=== PATIENT | female | born 1955 | race Caucasian/White ===

== ENCOUNTER 2021-12-05 13:37 | Inpatient (IN) | payer MEDICARE, BC ==
[~2021-12-05] VITALS: Ht 160 cm; Wt 58.1 kg
[2021-12-05] VITALS (24 sets, daily range): BP systolic 33–130; BP diastolic 23–88
--- NOTE | 2021-12-05 13:40 | NUR ---
[id number] FRM HOME "LOW BLD PRESSURE AT 60'S/40'S, TACHY AT 120's [address] FRM [facility] YESTERDAY; FULL CODE. WAS AT [facility] FOR BOWEL OBSTRUCTION AND WAS MEDICALLY CLEARED. ATTACHED TO MONITOR. DENIES ANY PAIN. DR ARIAS AT BEDSIDE. AWAITING MD ORDERS.
--- NOTE | 2021-12-05 13:44 | NUR ---
IV ESTABLIHSED L AC 20G. LABS DRAWN AND COLLECTED AT BEDSIDE
--- NOTE | 2021-12-05 13:44 | NUR ---
CALLED DR. JANA AMIN [phone] DROP HAMMER PILE DRIVER OPERATOR SERVICE WILL BE PAGED PER DOMINIQUE.
--- NOTE | 2021-12-05 13:50 | NUR ---
[facility] ADMINISTRATOR IS DR. JOSE FRANCISCO JESSICA WILL BE PAGED.
[2021-12-05] MEDS ORDERED: IV NS 0.9% 1,000 ML BAG IV ONE (14:00)
[2021-12-05 14:11] LABS: HEMATOCRIT 39 % (33-45); HEMOGLOBIN 12.4 g/dL (11.5-14.8); LYMPHOCYTES # (AUTO) 0.7 K/uL (0.8-4.8); LYMPHOCYTES % (AUTO) 38.2 % (20.0-44.0); MEAN CORPUSCULAR HGB CONC 32 g/dl (31.0-36.0); MEAN CORPUSCULAR VOLUME 96 fL (82-100); MONOCYTES # (AUTO) 0.1 K/uL (0.1-1.30); MONOCYTES % (AUTO) 3.2 % (2.0-12.0); NEUTROPHILS # (AUTO) 1.1 K/uL (1.8-8.9); NEUTROPHILS % (AUTO) 58.6 % (43.0-81.0); PLATELET COUNT (AUTO) 238 K/uL (150-450); RED BLOOD CELL COUNT(AUTO) 4.09 MIL/uL (4.0-5.2)
[2021-12-05 14:34] LABS: WHITE BLOOD COUNT (AUTO) 1.9 K/uL (4.3-11.0)
--- NOTE | 2021-12-05 14:36 | NUR ---
COVID TEST COLLECTED AND SENT
[2021-12-05] MEDS ORDERED: [UNRECOGNIZED DRUG - REMARK] (14:40)
[2021-12-05] MEDS ORDERED: MELA5TAB PO (14:40)
[2021-12-05] MEDS ORDERED: FOLI0.4T6 PO (14:40)
[2021-12-05] MEDS ORDERED: HYDROCHLOROTHIAZIDE (14:40)
[2021-12-05] MEDS ORDERED: ASCO500C17 PO (14:40)
[2021-12-05] MEDS ORDERED: HYDROMORPHONE 1 MG/1 ML DISP.SYRIN ONE (15:04)
[2021-12-05 15:07] LABS: CALCIUM, SERUM 10.3 mg/dL (8.5-10.1); CARBON DIOXIDE 17 mmol/L (21-32); CHLORIDE 104 mmol/L (98-107); CREATININE 3.5 mg/dL (0.6-1.3); GLUCOSE 133 mg/dL (74-106); POTASSIUM 4.8 mmol/L (3.5-5.1); SODIUM SERUM 142 mmol/L (136-145)
[2021-12-05 15:22] LABS: ALANINE AMINOTRANSFERASE 111 U/L (12-78); ALBUMIN 2.2 g/dL (3.4-5.0); ALKALINE PHOSPHATASE 119 U/L (46-116); ASPARTATE AMINOTRANSFERASE 71 U/L (15-37); BILIRUBIN,DIRECT 0.3 mg/dL (0.0-0.2); BILIRUBIN,TOTAL 0.9 mg/dL (0.2-1.0)
[2021-12-05 15:24] LABS: UREA NITROGEN, BLOOD 84 mg/dL (7-18)
[2021-12-05] MEDS ORDERED: HYDROMORPHONE 1 MG/1 ML DISP.SYRIN IV ONE (15:30)
--- NOTE | 2021-12-05 15:39 | NUR ---
CALLED DR. JESSICA [phone] MOSCOSO.
--- NOTE | 2021-12-05 15:45 | NUR ---
DR MOSCOSO ON THE PHONE WITH DR JESSICA
--- NOTE | 2021-12-05 15:55 | NUR ---
MOVE SHEET SUBMITTED.
[2021-12-05] MEDS ORDERED: VANCOMYCIN 1 GM in IV D5W 250 ML IV ONE (16:00)
[2021-12-05] MEDS ORDERED: NOREPINEPHRINE 8 MG in IV NS 0.9% 250 ML IV ONE (16:00)
[2021-12-05] MEDS ORDERED: CEFEPIME 1 GM in IV D5W 50 ML IV ONE (16:00)
--- NOTE | 2021-12-05 16:03 | NUR ---
[facility] CALLED METROPOLITAN EDITOR PAGED.
[2021-12-05] MEDS ORDERED: ONDANSETRON HCL/PF 4 MG/2 ML VIAL ONE (16:54)
[2021-12-05] MEDS ORDERED: IV NS 0.9% 1,000 ML IV PRN (17:00)
[2021-12-05] MEDS ORDERED: ACETAMINOPHEN 325 MG TABLET PO PRN (17:00)
[2021-12-05] MEDS ORDERED: MAG HYDROX/AL HYDROX/SIMETH 30 ML UDC PO PRN (17:00)
[2021-12-05] MEDS ORDERED: NOREPINEPHRINE 8 MG in IV NS 0.9% 242 ML IV PRN (17:00)
[2021-12-05] MEDS ORDERED: MAGNESIUM HYDROXIDE 30 ML UDC PO PRN (17:00)
[2021-12-05] MEDS ORDERED: ONDANSETRON HCL/PF - ER 4 MG/2 ML VIAL IV ONE (17:00)
[2021-12-05] MEDS ORDERED: Z GUARD REMEDY 4 OZ OINT TP PRN (17:00)
--- NOTE | 2021-12-05 17:38 | NUR ---
GOT BED ICU 260
[2021-12-05 17:47] LABS: BAND % (MANUAL) 6 % (0.0-5.0); LYMPHOCYTES % (MANUAL) 37 % (16-48); METAMYELOCYTES % 5 % (0-0); MONOCYTES % (MANUAL) 10 % (0-11.0); MYELOCYTES % 1 % (0-0); NEUTROPHILS % (MANUAL) 41 (42-76)
--- NOTE | 2021-12-05 17:48 | NUR ---
REPORT GIVEN TO ROSEMARIE FOR GLADIS
--- NOTE | 2021-12-05 18:35 | NUR ---
PATIENT ENTRY LINDEN HOUSTON RECEIVED REPORT FROM ER. PT ARRIVED TO ICU VIA ED GURNEY ACCOMPANIED BY RN AND TECH. PT IS CURRENTLY A&OX4, BREATHING EVEN AND UNLABORED ON RA. WHILE LYING SUPINE PT ENDORSES NO PAIN BUT WILL GIVE A 8/10 REPORT UPON MOVEMENT ASSOCIATED W/ ABDOMEN. CURRENT VS ARE 128 HR, 94% SPO2, RR 20, 121/81, 97.6 F. RN CHANGED LINENS, PLACED PT IN CLEAN GOWN, PUT PT ON BEDSIDE MONITOR. LEVOPHED IS RUNNING AT 0.2 MGC/KG/MIN. ADMISSION WILL BE ENDORSED TO MILK PASTEURIZER.
--- NOTE | 2021-12-05 18:40 | NUR ---
ICU/RN PT ADMITED FROM ER .AWAKE,ALERT.ON ROOM AIR.SAT O2-93%.HR-130 BPM SINUS RHYTHM.ON LEVOPHED DRIP.COLOSTOMY BAG.SKIN INTACT.AFEBRILE.NO PAIN REPORTED AT THIS TIME.
--- NOTE | 2021-12-05 18:43 | NUR ---
PT TRANSPORTED TO ICU WITH ACLS PROTOCOLS IN PLACE, PT RECIEVED BY RNS MAXIMILIAN AND ROSEMARIE.
[2021-12-05] MEDS: NOREPINEPHRINE 8 MG in IV NS 0.9% 242 ML IV PRN ×2 (19:00→19:46)
--- NOTE | 2021-12-05 19:10 | NUR ---
ICU/FRONT END UI DEVELOPER RECIEVED REPORT FROM DAY NURSE TYRESE, WHO HAD GOTTEN THE PT FROM ER @7105
[2021-12-05] MEDS ORDERED: FENTANYL PF 100MCG/2ML AMPUL IV ONE (20:30)
[2021-12-05] MEDS: PIPERACILLIN /TAZOBACTAM 2.25 G in IV D5W 50 ML IV SCH (20:55)
--- NOTE | 2021-12-05 21:00 | NUR ---
ICU/DIRECTOR DIVERSITY PT COMPLAINED ABOUT ABDOMINAL PAIN RATED 10/10, CALLED THE RESEARCH PHYSICIAN CRAMER. WAS GIVEN ORDER FOR FENTANYL 25MG. ORDER PLACED IN COMPUTER CHARGE NURSE CARRIED OUT ORDER. WILL MONITOR THIS PAIN.
--- NOTE | 2021-12-05 21:30 | NUR ---
ICU/PUBLIC HEALTH SANITARIAN TECHNICIAN LEVO WAS BEING TITRATED UP BY HOSE BUILDER NURSE DUE TO LOW BLOOD PRESSURE. WILL CONTINUE TO MONITOR THIS PT AND HER BLOOD PRESSURE.
[2021-12-06] VITALS (100 sets, daily range): BP systolic 76–153; BP diastolic 12–101
[2021-12-06] MEDS ORDERED: PHENYLEPHRINE 10 MG/ML VIAL ONE ×2 (00:05→05:19)
[2021-12-06] MEDS: PHENYLEPHRINE 50 MG in IV NS 0.9% 245 ML IV PRN ×2 (00:09→06:15)
--- NOTE | 2021-12-06 00:10 | NUR ---
ICU/WATER SYSTEMS DESIGNER PT HAD NOT VOIDED, DID A BLADDER SCAN SHOWED 500ML PLUS OF URINE. GOT AN MD ORDER FOR SLOAN CATH. THIS WAS PLACED. WILL MONITOR THIS PT'S URINE OUTPUT. SOME URINE WAS COLLECTED AND SENT TO LAB FOR UA & CULTURE.
--- NOTE | 2021-12-06 00:20 | NUR ---
ICU/CUSHION FORMER EKG ORDERED FOR HIGH HEART RATE 160'S- SHOWED A NORMAL EKG.
--- NOTE | 2021-12-06 00:30 | NUR ---
ICU/METAL FURRER PT'S HEART RATE IS 130'S, CHARGE NURSE CHANGED OVER LEVO TO JUDITH FOR THIS REASON. WILL MONITOR THIS PT'S HEART RATE AND BLOOD PRESSURE. PT'S HEART RATE INCREASED TO 160'S, STAT EKG SHOWED SINUS TACH.
[2021-12-06] MEDS: ONDANSETRON HCL/PF 4 MG/2 ML VIAL IVP PRN (00:46)
--- NOTE | 2021-12-06 01:15 | NUR ---
ICU/C D AREA SUPERVISOR PT VOMITED LARGE AMOUNT OF FOUL SMELLING, BROWN, LIQUID, ABOUT 600-800ML. ZOFRAN WAS GIVEN AT THIS TIME. ALSO PLACED A NG TUBE TO LOW SUCTION. ALSO AT THIS TIME ORDERED A EKG AND STAT KUB. AWAIT FOR RESULTS.
[2021-12-06 01:17] LABS: ABG OXYGEN SATURATION 96.6 % (92.0-98.5); ABG PCO2 28.9 mmHg (35.0-45.0); ABG PH 7.382 (7.350-7.450); ABG PO2 97.2 mmHg (75.0-100.0); AaDO2 68.3 mmHg; COHb 0.8 % (0.5-1.5); MetHb 0.3 % (0.0-1.5); O2Hb 95.5 % (94.0-97.0); SITE, ABG Right Brachial; VENT MODE, BG 2L N/C
--- NOTE | 2021-12-06 01:20 | NUR ---
ICU/REWRITE EDITOR STAT ABG WAS ORDER DUE TO LOW STATURATION, POSSIBLE ASPIRATION FROM VOMITING. ABG RESULTS WERE GOOD. NO CHANGED. PT REMAINS ON 3 LITERS N/C.
--- NOTE | 2021-12-06 01:30 | NUR ---
ICU/GAS TREATER TITRATED JUDITH PER PROTOCAL. BLOD PRESSURE IS STILL IN THE 70'S TO 80'S.
--- NOTE | 2021-12-06 02:16 | NUR ---
ICU/SHEET METAL JOURNEYMAN U/A & CULTURE SENT OUT TO LAB. COLLECTED FROM SLOAN CATH PORT.
[2021-12-06] MEDS ORDERED: VASOPRESSIN INJ 40 UNIT in IV NS 0.9% 38 ML IV PRN (04:00)
--- NOTE | 2021-12-06 04:00 | NUR ---
ICU/CORN HUSK BALER RESULTS FOR KUB WAS RESULTED SMALL BOWEL OBSTRUCTION. CALLED THIS INTO FINANCIAL MANAGEMENT WHO ORDERED A SMALL BOWEL FOLLOW THROUGH AND REGLAN Q 8 HRS
[2021-12-06] MEDS: METOCLOPRAMIDE HCL 10 MG/2 ML VIAL IV SCH ×3 (04:20→20:17)
[2021-12-06] MEDS: PIPERACILLIN /TAZOBACTAM 2.25 G in IV D5W 50 ML IV SCH ×3 (04:20→20:17)
[2021-12-06 04:27] LABS: CALCIUM, SERUM 8.9 mg/dL (8.5-10.1); CREATININE 3.3 mg/dL (0.6-1.3); MAGNESIUM 2.4 mg/dL (1.8-2.4); PHOSPHORUS 6.8 mg/dL (2.5-4.9); POTASSIUM 4.7 mmol/L (3.5-5.1)
[2021-12-06 04:30] LABS: BASOPHILS % (AUTO) 0.1 % (0.0-2.0); EOSINOPHILS % (AUTO) 0.7 % (0.0-6.0); HEMATOCRIT 33 % (33-45); HEMOGLOBIN 10.9 g/dL (11.5-14.8); LYMPHOCYTES # (AUTO) 0.5 K/uL (0.8-4.8); LYMPHOCYTES % (AUTO) 47.5 % (20.0-44.0); MEAN CORPUSCULAR HGB CONC 33 g/dl (31.0-36.0); MEAN CORPUSCULAR VOLUME 91 fL (82-100); NEUTROPHILS # (AUTO) 0.5 K/uL (1.8-8.9); NEUTROPHILS % (AUTO) 49.7 % (43.0-81.0); PLATELET COUNT (AUTO) 170 K/uL (150-450); RED BLOOD CELL COUNT(AUTO) 3.61 MIL/uL (4.0-5.2)
[2021-12-06 04:44] LABS: BILIRUBIN,URINE NEGATIVE (NEGATIVE); COLOR,URINE YELLOW (YELLOW); LEUKOCYTE ESTERASE ,URINE SMALL (NEGATIVE); NITRITE, URINE NEGATIVE (NEGATIVE); PROTEIN,URINE >=300 mg/dl (NEGATIVE); UGLUCOSE NEGATIVE (NEGATIVE); UROBILINOGEN,URINE 0.2 EU/dL (0.2)
--- NOTE | 2021-12-06 05:30 | NUR ---
ICU/CAR HOSTLER PT APPEARS TO BE DOING BETTER. BP IMPROVED, JUDITH IS MAXED. WILL MONITOR THIS PT.
--- NOTE | 2021-12-06 07:30 | NUR ---
RN NOTES PT FOUND LOW FOWLERS DISPLAYING S/S OF MILD DISTRESS, PT IS BREATHING EVEN AND UNLABORED ON 4L O2 NC AND WHEN PT ASKED ABOUT PAIN SCALE, PT CONFIRMED PAIN BUT COULD NOT ARTICULATE A #/10, CURRENT FLACC = 1 (FACIAL GRIMACE). NG TUBE IN PLACE PERFORMING LOW INTERMITTENT SUCTIONING, DARK BROWN SUBSTANCE OBSERVED. L UA ML IS PATIENT AND INTACT. L CHEST WALL PROT-A-CATH DRESSING IS CLEAN AND DRY. SLOAN CATH RESERVOIR BELOW PATIENT DRAINING BY GRAVITY. RN WILL CONTINUE CARE PLAN AND ANTICIPATE NEEDS. SAFETY MEASURES IN PLACE, BED LOCKED AND IN LOWEST POSITION, SIDE RAILS UPX2, CALL LIGHT WITHIN REACH, BED ALARM ARMED.
[2021-12-06 08:05] LABS: BACTERIA,URINE Moderate /HPF (None Seen); RBC,URINE 0-2 /HPF (0-2); SQUAMOUS EPITHELIAL CELL,UR Moderate /HPF (None Seen); WBC,URINE 0-2 /HPF (0-3)
[2021-12-06 08:12] LABS: BAND % (MANUAL) 3 % (0.0-5.0); LYMPHOCYTES % (MANUAL) 44 % (16-48); MONOCYTES % (MANUAL) 2 % (0-11.0); NEUTROPHILS % (MANUAL) 51 (42-76)
[2021-12-06] MEDS ORDERED: IV NS 0.9% 1,000 ML IV PRN (08:51)
[2021-12-06] MEDS: HYDROCORTISONE SOD SUCCINATE 100 MG/2 ML VIAL IV SCH ×3 (09:43→23:10)
[2021-12-06] MEDS: IV D5/ 0.9% NACL 1,000 ML IV PRN ×3 (09:44→20:31)
[2021-12-06] MEDS: PHENYLEPHRINE 100 MG in IV NS 0.9% 240 ML IV PRN ×2 (10:35→20:19)
[2021-12-06] MEDS: VANCOMYCIN 500 MG in IV D5W 100ml IV SCH (11:01)
[2021-12-06] MEDS ORDERED: VANCOMYCIN 500 MG in IV D5W 100 ML IV PRN (17:00)
--- NOTE | 2021-12-06 19:20 | NUR ---
RN NOTES PT FOUND LOW FOWLERS DISPLAYING NO S/S OF DISTRESS, PT IS BREATHING EVEN AND UNLABORED ON 4L O2 NC AND PT ENDORSES NO PAIN. NG TUBE IN PLACE PERFORMING LOW INTERMITTENT SUCTIONING, DARK BROWN SUBSTANCE OBSERVED. L UA ML IS PATIENT AND INTACT. L CHEST WALL PROT-A-CATH DRESSING IS CLEAN AND DRY. SLOAN CATH RESERVOIR BELOW PATIENT DRAINING BY GRAVITY. SBAR AND REPORT GIVEN TO WASTEWATER TREATMENT SUPERVISOR, ALL QUESTIONS ANSWERED. SAFETY MEASURES IN PLACE, BED LOCKED AND IN LOWEST POSITION, SIDE RAILS UPX2, CALL LIGHT WITHIN REACH, BED ALARM ARMED.
--- NOTE | 2021-12-06 19:40 | NUR ---
ICU/PATRON ATTENDANT CT FROM TODAY SHOWS SBO/OBSTRUCTION WITH POSS. COLON NEOPLASM
[2021-12-07] VITALS (44 sets, daily range): BP systolic 104–134; BP diastolic 32–90
--- NOTE | 2021-12-07 00:10 | NUR ---
ICU/STATISTICAL PROGRAMMER HAVE BEEN TITRATING DOWN THE JUDITH, SEE IV SPREAD SHEET FOR THIS.
[2021-12-07 04:53] LABS: EOSINOPHILS % (AUTO) 0.9 % (0.0-6.0); HEMATOCRIT 28 % (33-45); HEMOGLOBIN 9.4 g/dL (11.5-14.8); LYMPHOCYTES # (AUTO) 0.2 K/uL (0.8-4.8); LYMPHOCYTES % (AUTO) 60.7 % (20.0-44.0); MEAN CORPUSCULAR HGB CONC 34 g/dl (31.0-36.0); MEAN CORPUSCULAR VOLUME 91 fL (82-100); MONOCYTES # (AUTO) 0.1 K/uL (0.1-1.30); NEUTROPHILS % (AUTO) 5.4 % (43.0-81.0); PLATELET COUNT (AUTO) 98 K/uL (150-450); RED BLOOD CELL COUNT(AUTO) 3.04 MIL/uL (4.0-5.2)
[2021-12-07] MEDS: METOCLOPRAMIDE HCL 10 MG/2 ML VIAL IV SCH ×3 (05:01→20:56)
[2021-12-07] MEDS: PIPERACILLIN /TAZOBACTAM 2.25 G in IV D5W 50 ML IV SCH ×3 (05:01→20:56)
[2021-12-07 05:05] LABS: CALCIUM, SERUM 8.6 mg/dL (8.5-10.1); CREATININE 3.7 mg/dL (0.6-1.3); MAGNESIUM 2.4 mg/dL (1.8-2.4); PHOSPHORUS 6.1 mg/dL (2.5-4.9); POTASSIUM 3.7 mmol/L (3.5-5.1)
[2021-12-07 05:18] LABS: WHITE BLOOD COUNT (AUTO) 0.4 K/uL (4.3-11.0)
[2021-12-07 05:28] LABS: BAND % (MANUAL) 6 % (0.0-5.0); LYMPHOCYTES % (MANUAL) 59 % (16-48); NEUTROPHILS % (MANUAL) 8 (42-76)
[2021-12-07 05:29] LABS: EOSINOPHILS % (MANUAL) 2 % (0-4); MONOCYTES % (MANUAL) 25 % (0-11.0)
[2021-12-07] MEDS: IV D5/ 0.9% NACL 1,000 ML IV PRN (05:47)
--- NOTE | 2021-12-07 06:53 | NUR ---
ICU/JUNK REMOVAL SPECIALIST HAVE BEEN TITRATING DOWN THE JUDITH, SEE IV SPREAD SHEET FOR THIS.
--- NOTE | 2021-12-07 07:31 | NUR ---
WOUND CARE CONSULT: PT PRESENTS WITH SACRAL INTACT DEEP TISSUE INJURY, PRESENT ON ADMISSION. PT HAS COLOSTOMY POUCH WITH NO OUTPUT. SLOAN CATH NOTED. RECOMMENDATIONS MADE FOR SKIN PROTECTION. DISCUSSED WITH NURSING STAFF. IN AGREEMENT WITH PLAN OF CARE. Addendum: 12/07/21 at 0732 by SHAYAN KIM WNDNU Amended: Links added.
[2021-12-07] MEDS ORDERED: TPN/PPN PER PHARMACY XX PRN (08:00)
--- NOTE | 2021-12-07 08:00 | NUR ---
Titrated Isaac Off. SBP>90. updated Dr Calle. Followed up Cortisol Level (specimen send out). Still Pending per Lab
[2021-12-07] MEDS: HYDROCORTISONE SOD SUCCINATE 100 MG/2 ML VIAL IV SCH ×3 (08:07→23:35)
--- NOTE | 2021-12-07 08:45 | NUR ---
Spoke to Nicholas (Pt's ) over the phone and updated him on Pt plan of care.
[2021-12-07] MEDS: VANCOMYCIN 500 MG in IV D5W 100ml IV SCH (10:34)
[2021-12-07] MEDS ORDERED: DEXTROSE 50%-WATER 50 ML DISP.SYRIN IV PRN (11:00)
[2021-12-07 11:20] LABS: PREALBUMIN 8.7 MG/DL (18.0-35.7)
[2021-12-07 11:44] LABS: HEMOGLOBIN 9.5 g/dL (11.5-14.8)
[2021-12-07] MEDS: BLOOD SUGAR DIAGNOSTIC 1 EACH STRIP IN SCH ×3 (11:56→23:46)
[2021-12-07] MEDS ORDERED: TPN BAG #1 IV PRN ×4 (12:00)
--- NOTE | 2021-12-07 12:00 | NUR ---
Accu 336. Initiated TPN as ordered. Called Pharmacy per protocol. Instructed to give Insulin per Sliding Scale
[2021-12-07] MEDS: INSULIN REGULAR, HUMAN 100 UNIT/ML 3 ML VIAL SQ PRN ×2 (12:12→23:47)
[2021-12-07 12:58] LABS: ALBUMIN 1.4 g/dL (3.4-5.0)
[2021-12-07] MEDS: TBO-FILGRASTIM 300 MCG/0.5 ML SYRINGE SQ SCH (14:32)
[2021-12-07 15:30] LABS: D-DIMER 12.35 mg/L(FEU (0.17-0.50)
--- NOTE | 2021-12-07 18:00 | NUR ---
Pt Awake follows simple commands, episodes of confusion. Cont with IV Abx for managment of Sepsis with shock. Neosynephrine drip titrated off with SBP >90 NGT remains on Intermitent Suction. NGT output likely bowel obstruction with fecal matter per MD Remains NPO; TPN initiated via Kishore cath Possible Surgical intervention to help resolve SBO. Adequate UOP noted Family update on plan of care
[2021-12-07 18:43] LABS: IRON, SERUM 30 ug/dl (50-175); TOTAL IRON BINDING CAPACITY 145 ug/dl (250-450)
[2021-12-07 18:56] LABS: FERRITIN 1823 ng/mL (8-388)
--- NOTE | 2021-12-07 19:15 | NUR ---
RN OPENING NOTES RECEIVED PATIENT ON BED, SLEEPING BUT EASY TO AROUSE, VERBALLY RESPONSIVE. PT. ON NASAL CANULA @ 2LPM SATING AT 95%. RESPIRATORY EVEN AND UNLABORED, NO SOB NOTED. AFEBRILE. NO S/S OF DISTRESS NOTED. WITH LEFT CHEST WALL PORT CATH AND NABEEL MID LINE, PATENT, INTACT, FLUSHED WITH NS. NO S/S OF INFILTRATION NOTED. WITH TPN @ 40 ML/HR. SLOAN CATHETER PATENT INTACT DRAINING CLEAR YELLOW URINE VIA GRAVITY. WITH DIVERTING COLOSTOMY NO OUTPUT NOTED AT THIS TIME. REPOSITION EVERY 2 HRS. ALL SAFETY PRECAUTION PROVIDED, BED IN LOWEST POSITION, LOCKED. BED ALARM ARMED. CALL LIGHT WITH IN REACH. CONTINUE TO MONITOR. Addendum: 12/07/21 at 2048 by VLAD BERMUDEZ RN PATIENT WITH NGT INSERTED TO RIGHT NARE, VERIFIED PLACEMENT BY AUSCULTATION, CONNECTED TO LOW INTERMITTENT SUCTION WITH BROWN COLORED SUBSTANCE.
[2021-12-08] VITALS (24 sets, daily range): BP systolic 89–135; BP diastolic 55–84
[2021-12-08 04:30] LABS: CREATININE 4.3 mg/dL (0.6-1.3); POTASSIUM 3.5 mmol/L (3.5-5.1)
[2021-12-08 04:59] LABS: D-DIMER 10.07 mg/L(FEU (0.17-0.50)
[2021-12-08] MEDS: PIPERACILLIN /TAZOBACTAM 2.25 G in IV D5W 50 ML IV SCH ×3 (05:30→20:37)
[2021-12-08] MEDS: METOCLOPRAMIDE HCL 10 MG/2 ML VIAL IV SCH ×3 (05:30→20:37)
[2021-12-08] MEDS: INSULIN REGULAR, HUMAN 100 UNIT/ML 3 ML VIAL SQ PRN ×3 (06:36→18:03)
[2021-12-08] MEDS: BLOOD SUGAR DIAGNOSTIC 1 EACH STRIP IN SCH ×4 (06:37→23:47)
--- NOTE | 2021-12-08 07:17 | NUR ---
NO SIGNIFICANT CHANGES THROUGH OUT THE SHIFT. RESPIRATORY EVEN AND UNLABORED, NO SOB NOTED. STILL AFEBRILE. NO S/S OF DISTRESS NOTED. WITH TPN @ 40 ML/HR. PATIENT WITH NGT INSERTED TO LEFT NARE, VERIFIED PLACEMENT BY AUSCULTATION, CONNECTED TO LOW INTERMITTENT SUCTION WITH BROWN COLORED SUBSTANCE OUTPUT. SLOAN CATHETER PATENT INTACT DRAINING CLEAR YELLOW URINE VIA GRAVITY. WITH DIVERTING COLOSTOMY NO OUTPUT NOTED AT THIS TIME. REPOSITION EVERY 2 HRS. ALL DUE MEDS GIVEN. ALL SAFETY PRECAUTION PROVIDED, BED IN LOWEST POSITION, LOCKED. BED ALARM ARMED. CALL LIGHT WITH IN REACH. REPORT GIVEN TO ASHLEY YAÑEZ FOR CONTINUITY OF CARE..
[2021-12-08 07:50] LABS: MAGNESIUM 2.6 mg/dL (1.8-2.4); PHOSPHORUS 6.5 mg/dL (2.5-4.9)
[2021-12-08] MEDS: IV 1/2NS 1000 ML 1,000 ML IV SCH ×2 (08:42→20:37)
[2021-12-08] MEDS ORDERED: TPN BAG #2 IV PRN ×4 (12:00)
[2021-12-08 15:09] LABS: EOSINOPHILS % (AUTO) 7.2 % (0.0-6.0); HEMATOCRIT 25 % (33-45); HEMOGLOBIN 8.4 g/dL (11.5-14.8); LYMPHOCYTES # (AUTO) 0.3 K/uL (0.8-4.8); LYMPHOCYTES % (AUTO) 64.9 % (20.0-44.0); MEAN CORPUSCULAR HGB CONC 34 g/dl (31.0-36.0); MEAN CORPUSCULAR VOLUME 92 fL (82-100); MONOCYTES # (AUTO) 0.1 K/uL (0.1-1.30); MONOCYTES % (AUTO) 18.6 % (2.0-12.0); NEUTROPHILS % (AUTO) 9.3 % (43.0-81.0); RED BLOOD CELL COUNT(AUTO) 2.73 MIL/uL (4.0-5.2)
[2021-12-08] MEDS: TBO-FILGRASTIM 300 MCG/0.5 ML SYRINGE SQ SCH (15:24)
[2021-12-08 16:07] LABS: PLATELET COUNT (AUTO) 45 K/uL (150-450); WHITE BLOOD COUNT (AUTO) 0.4 K/uL (4.3-11.0)
--- NOTE | 2021-12-08 19:48 | NUR ---
EMPLOYMENT COORDINATOR OPENING NOTES RECEIVED PATIENT ON BED, AWAKE, A/O X1-2. ON NASAL CANULA @ 2LPM CURRENTLY SATING AT 96%. RESPIRATORY EVEN AND UNLABORED, NO SOB NOTED. AFEBRILE. NO S/S OF DISTRESS NOTED. WITH LEFT CHEST WALL PORTCATH AND NABEEL MID LINE, INTACT AND PATENT RUNNING 1/2 NS AT 75 ML/HR. NO S/S OF INFILTRATION NOTED. WITH TPN @ 60 ML/HR. PT NOTED WITH L NARE NGT CONNECTED TO LOW INTERMITTENT SUCTION DRAINING TO BLACK COLORED OUTPUT, SLOAN CATHETER PATENT INTACT DRAINING CLEAR YELLOW URINE VIA GRAVITY. WITH DIVERTING COLOSTOMY NO OUTPUT NOTED AT THIS TIME. REPOSITION EVERY 2 HRS. ALL SAFETY PRECAUTION PROVIDED, BED IN LOWEST POSITION, LOCKED. BED ALARM ON. CALL LIGHT WITHIN REACH. FAMILY AT BEDSIDE, WILL CONTINUE TO MONITOR.
--- NOTE | 2021-12-08 23:46 | NUR ---
RN NOTE BS CHECKED AT 108 MG/DL, NO COVERAGE GIVEN PER SLIDING SCALE, WILL CONT TO MONITOR.
[2021-12-09] VITALS (72 sets, daily range): BP systolic 76–143; BP diastolic 35–95
--- NOTE | 2021-12-09 03:16 | NUR ---
RN NOTE NOTED PT BP LOW AT 80/53, INFORMED DATA COMMUNICATIONS TECHNICIAN DRE, PT IS ALSO SCHEDULED FOR EXPLORATORY LAPAROTOMY W/ PALLIATIVE BYPASS KADEEM AT 1230, HE THEN ORDERED LEVOPHED TO KEEP MAP >65MMHG. ORDER TAKEN AND CARRIED OUT. WILL CONTINUE TO MONITOR PATIENT.
[2021-12-09] MEDS ORDERED: NOREPINEPHRINE 8MG/250ML RTU 250 ML IV ONE (03:38)
[2021-12-09] MEDS ORDERED: NOREPINEPHRINE 8 MG in IV NS 0.9% 242 ML IV PRN (04:00)
[2021-12-09] MEDS ORDERED: TPN BAG #3 IV PRN ×3 (04:00)
[2021-12-09 04:20] LABS: EOSINOPHILS % (AUTO) 2.8 % (0.0-6.0); HEMATOCRIT 23 % (33-45); HEMOGLOBIN 7.8 g/dL (11.5-14.8); LYMPHOCYTES # (AUTO) 0.4 K/uL (0.8-4.8); LYMPHOCYTES % (AUTO) 67.1 % (20.0-44.0); MEAN CORPUSCULAR HGB CONC 34 g/dl (31.0-36.0); MEAN CORPUSCULAR VOLUME 91 fL (82-100); MONOCYTES # (AUTO) 0.1 K/uL (0.1-1.30); MONOCYTES % (AUTO) 18.9 % (2.0-12.0); NEUTROPHILS # (AUTO) 0.1 K/uL (1.8-8.9); NEUTROPHILS % (AUTO) 11.2 % (43.0-81.0); RED BLOOD CELL COUNT(AUTO) 2.52 MIL/uL (4.0-5.2)
[2021-12-09 04:32] LABS: CALCIUM, SERUM 8.5 mg/dL (8.5-10.1); CARBON DIOXIDE 28 mmol/L (21-32); CHLORIDE 98 mmol/L (98-107); CREATININE 4.9 mg/dL (0.6-1.3); GLUCOSE 145 mg/dL (74-106); MAGNESIUM 2.2 mg/dL (1.8-2.4); PHOSPHORUS 4.8 mg/dL (2.5-4.9); POTASSIUM 3.4 mmol/L (3.5-5.1); SODIUM SERUM 139 mmol/L (136-145)
[2021-12-09 04:33] LABS: CHOLESTEROL 122 mg/dL (<200); HDL CHOLESTEROL 19 mg/dL (40-60); LDL 40 mg/dL (0-99); PLATELET COUNT (AUTO) 38 K/uL (150-450); TRIGLYCERIDES 188 mg/dL (30-150); WHITE BLOOD COUNT (AUTO) 0.5 K/uL (4.3-11.0)
--- NOTE | 2021-12-09 04:34 | NUR ---
RN NOTE RECEIVED CRITICAL LAB OF WBC 0.5 FROM 0.4 AND PLATELETS 38, OPERATING ROOM REGISTERED NURSE MD MADE AWARE NO NEW ORDERS.
[2021-12-09 04:46] LABS: UREA NITROGEN, BLOOD > 150 mg/dL (7-18)
--- NOTE | 2021-12-09 04:46 | NUR ---
RN NOTE RECEIVED CRITICAL LAB BUN >150. TALENT COORDINATOR MD MADE AWARE, FOLLOWED HOSPITAL PROTOCOL, NO NEW ORDERS AT THIS TIME.
[2021-12-09 04:47] LABS: BAND % (MANUAL) 4 % (0.0-5.0); NEUTROPHILS % (MANUAL) 10 (42-76)
[2021-12-09 04:48] LABS: EOSINOPHILS % (MANUAL) 6 % (0-4); LYMPHOCYTES % (MANUAL) 50 % (16-48); MONOCYTES % (MANUAL) 30 % (0-11.0)
[2021-12-09 04:51] LABS: D-DIMER 14.2 mg/L(FEU (0.17-0.50)
[2021-12-09] MEDS: METOCLOPRAMIDE HCL 10 MG/2 ML VIAL IV SCH ×3 (05:16→21:05)
[2021-12-09] MEDS: PIPERACILLIN /TAZOBACTAM 2.25 G in IV D5W 50 ML IV SCH ×3 (05:17→21:05)
[2021-12-09] MEDS: BLOOD SUGAR DIAGNOSTIC 1 EACH STRIP IN SCH ×4 (06:17→23:13)
[2021-12-09] MEDS: INSULIN REGULAR, HUMAN 100 UNIT/ML 3 ML VIAL SQ PRN (06:20)
--- NOTE | 2021-12-09 06:58 | NUR ---
SANDING MACHINE TENDER NOTE HAVE BEEN TITRATING LEVOPHED TO MAINTAIN MAP >65, SEE IV SPREAD SHEET FOR THIS.
[2021-12-09 07:07] LABS: IMMUNOGLOBULIN A, SERUM 271 mg/dL (87-352); IMMUNOGLOBULIN G, SERUM 709 mg/dL (586-1602); IMMUNOGLOBULIN M, SERUM 299 mg/dL (26-217)
--- NOTE | 2021-12-09 07:30 | NUR ---
Surgery Cancelled. (Pt hemodynamically unstable) Not cleared by Cardiology per Dr Pizarro, who notified Dr Alvarez Notified Category Manager, to make OR aware of the decision. Notified Pt. about postponing the surgery @ this time.
[2021-12-09] MEDS: IV NS 0.9% 1,000 ML IV PRN ×3 (07:44→15:39)
[2021-12-09] MEDS: POTASSIUM CL. PREMIX PERIPHER. 50 ML IV SCH ×4 (07:44→10:53)
[2021-12-09] MEDS ORDERED: VANCOMYCIN 500 MG in IV D5W 100ml IV SCH (11:00)
[2021-12-09] MEDS: MORPHINE SULFATE INJ 2 MG/ML DISP.SYRIN IV PRN (11:29)
--- NOTE | 2021-12-09 12:15 | NUR ---
ICU/RN 1 UNIT PRBC INITIATED. NO SIGNS OF ADVERSE EFFECT, PT RESTING COMFORTABLE, VSS.
[2021-12-09 13:06] LABS: *SPE A/G RATIO 0.5 (0.7-1.7); *SPE ALPHA-1-GLOBULIN 0.6 g/dL (0.0-0.4); *SPE ALPHA-2-GLOBULIN 1.1 g/dL (0.4-1.0); *SPE BETA GLOBULIN 0.8 g/dL (0.7-1.3); *SPE M-SPIKE Not Observed g/dL (Not Observed)
[2021-12-09 14:07] LABS: *ANA ANTI-CENTROMERE B AB <0.2 AI (0.0-0.9); *ANA ANTI-DNA(DS) AB, QN <1 IU/mL (0-9); *ANA ANTI-JO-1 <0.2 AI (0.0-0.9); *ANA ANTICHROMATIN ANTIBODY 1.2 AI (0.0-0.9); *ANA RNP ANTIBODIES <0.2 AI (0.0-0.9); *ANA SJOGREN'S ANTI-SS-A <0.2 AI (0.0-0.9); *ANA SJOGREN'S ANTI-SS-B <0.2 AI (0.0-0.9); *ANAANTI-SCLERODERMA-70 AB <0.2 AI (0.0-0.9); *ANASMITH AB <0.2 AI (0.0-0.9)
[2021-12-09] MEDS: TBO-FILGRASTIM 300 MCG/0.5 ML SYRINGE SQ SCH (14:14)
--- NOTE | 2021-12-09 14:50 | NUR ---
ICU/RN 1 UNIT PRBC COMPLETED. VITAL SIGNS STABLE. BP STABLE ON 0.04MCG/KG/MIN OF LEVOPHED.
--- NOTE | 2021-12-09 18:20 | NUR ---
ICU/RN SECOND UNIT OF PRBC COMPLETED. NO SIGNS OF ADVERSE REACTION. PT STABLE AT THIS TIME, VITAL SIGNS STABLE AND BP 120/71, LEVOPHED OFF SINCE 1800.
[2021-12-09 19:48] LABS: PREALBUMIN 7.5 MG/DL (18.0-35.7)
[2021-12-09 19:51] LABS: ALBUMIN 0.8 g/dL (3.4-5.0)
[2021-12-09 19:56] LABS: EOSINOPHILS % (AUTO) 2.9 % (0.0-6.0); HEMATOCRIT 30 % (33-45); HEMOGLOBIN 10.1 g/dL (11.5-14.8); LYMPHOCYTES # (AUTO) 0.4 K/uL (0.8-4.8); LYMPHOCYTES % (AUTO) 77.9 % (20.0-44.0); MEAN CORPUSCULAR HGB CONC 34 g/dl (31.0-36.0); MEAN CORPUSCULAR VOLUME 88 fL (82-100); MONOCYTES # (AUTO) 0.1 K/uL (0.1-1.30); MONOCYTES % (AUTO) 16.1 % (2.0-12.0); NEUTROPHILS % (AUTO) 3.1 % (43.0-81.0); RED BLOOD CELL COUNT(AUTO) 3.38 MIL/uL (4.0-5.2)
[2021-12-09] MEDS ORDERED: TPN BAG #4 IV PRN ×4 (20:00)
[2021-12-09 20:13] LABS: PLATELET COUNT (AUTO) 21 K/uL (150-450); WHITE BLOOD COUNT (AUTO) 0.5 K/uL (4.3-11.0)
--- NOTE | 2021-12-09 21:00 | NUR ---
INSTANTIZER OPERATOR. SINCE MORNING 1 UNIT PLATELET ORDERED. I CALLED BLOOD BANK. NO ANSWER. 2119 MY FORM TAMPER SPOKE WITH KIA . SHE SAID PLATELETS NOT READY.
--- NOTE | 2021-12-09 21:00 | NUR ---
SPIRAL SPRING WINDER. INITIAL ASSESSMENT. RECEIVED THE PT REST IN BED. AWAKE, ALERT, FOLLOW COMMANDS. REINFORCING BAR SETTER SHOWING S TACH. NGT INTACT. LOW INTERMITTENT SUCTION. COLOSTOMY BAG INTACT. FC PATENT. HOB ELEVATED. IV LT CHEST CATHIE CATH . LT UPPER ARM MID LINE, TPA @ 60 ML/H. WILL CONTINUE TO MONITOR VITALS.
[2021-12-09] MEDS: IV NS 0.9% 250 ML IV PRN (21:10)
--- NOTE | 2021-12-09 21:25 | NUR ---
ELECTRONIC SYSTEM ENGINEER. LAB CALLED FOR CRITICAL RESULT. WBC, 0.5. PLT 21. NOTIFIED ON CLAUDIA IVA ERICKSON. NO NEW ORDER. .
--- NOTE | 2021-12-09 22:25 | NUR ---
OPERATIONS ADMINISTRATIVE ASSISTANT. CALLED THE BLOOD BANK FOR PLATELETS, I SPOKE WITH KIA. SHE SAID. PLATELETS NOT AVAILABLE, ITS COMING FROM [facility]. NOTIFIED DRIVERS' CASH CLERK. SUPER VISOR CALLED BLOOD BANK. PLATELET WILL BE READY IN 5 MINUTES. WILL FOLLOW UP.
[2021-12-10] VITALS (83 sets, daily range): BP systolic 72–172; BP diastolic 48–99
[2021-12-10 00:18] LABS: BAND % (MANUAL) 3 % (0.0-5.0); LYMPHOCYTES % (MANUAL) 75 % (16-48); MONOCYTES % (MANUAL) 15 % (0-11.0)
[2021-12-10 00:19] LABS: EOSINOPHILS % (MANUAL) 2 % (0-4)
[2021-12-10 00:20] LABS: NEUTROPHILS % (MANUAL) 5 (42-76)
[2021-12-10] MEDS: PHENYLEPHRINE 100 MG in IV NS 0.9% 240 ML IV PRN (00:25)
--- NOTE | 2021-12-10 01:12 | NUR ---
POLICE CADET. 1 UNIT PLATELETS STARTED. DURING TRANSFUSION NO COMPLICATION NOTED. WILL CONTINUE TO MONITOR.
--- NOTE | 2021-12-10 01:14 | NUR ---
SBP IS 77/48 . JUDITH STARTED PER ORDERED.
[2021-12-10 03:56] LABS: BASOPHILS % (AUTO) 0.1 % (0.0-2.0); EOSINOPHILS % (AUTO) 1.8 % (0.0-6.0); HEMATOCRIT 29 % (33-45); HEMOGLOBIN 9.9 g/dL (11.5-14.8); LYMPHOCYTES # (AUTO) 0.4 K/uL (0.8-4.8); LYMPHOCYTES % (AUTO) 71.3 % (20.0-44.0); MEAN CORPUSCULAR HGB CONC 34 g/dl (31.0-36.0); MEAN CORPUSCULAR VOLUME 87 fL (82-100); MONOCYTES # (AUTO) 0.2 K/uL (0.1-1.30); MONOCYTES % (AUTO) 26.1 % (2.0-12.0); NEUTROPHILS % (AUTO) 0.7 % (43.0-81.0); RED BLOOD CELL COUNT(AUTO) 3.33 MIL/uL (4.0-5.2)
[2021-12-10 04:37] LABS: ALANINE AMINOTRANSFERASE 98 U/L (12-78); ALKALINE PHOSPHATASE 41 U/L (46-116); ASPARTATE AMINOTRANSFERASE 72 U/L (15-37); BILIRUBIN,TOTAL 0.9 mg/dL (0.2-1.0); CALCIUM, SERUM 8.1 mg/dL (8.5-10.1); CARBON DIOXIDE 22 mmol/L (21-32); CHLORIDE 101 mmol/L (98-107); GLUCOSE 127 mg/dL (74-106); MAGNESIUM 1.8 mg/dL (1.8-2.4); PHOSPHORUS 4.5 mg/dL (2.5-4.9); POTASSIUM 3.7 mmol/L (3.5-5.1); SODIUM SERUM 138 mmol/L (136-145); TOTAL PROTEIN, SERUM 4.8 g/dL (6.4-8.2)
[2021-12-10 04:42] LABS: CHOLESTEROL 100 mg/dL (<200); HDL CHOLESTEROL 14 mg/dL (40-60); LDL 39 mg/dL (0-99); TRIGLYCERIDES 177 mg/dL (30-150)
--- NOTE | 2021-12-10 04:42 | NUR ---
CUSTOMER FACILITIES SUPERVISOR.AM CARE GIVEN. REMAINING SAME OXYGEN 2L NASAL CANNULA TOLERATED WELL. SAT 98%. NO ACUTE DISTRESS NOTED, METROLOGY TECHNICIAN SHOWING NSR .IV LT UPPER ARM MID LINE, TPN @ 60 ML/H. JUDITH 0.5 MCG/KG/MIN. HOB ELEVATED. TURN AND REPOSITION Q2H. WILL CONTINUE TO MONITOR VITALS.
[2021-12-10 04:48] LABS: PLATELET COUNT (AUTO) 31 K/uL (150-450); WHITE BLOOD COUNT (AUTO) 0.6 K/uL (4.3-11.0)
[2021-12-10] MEDS: PIPERACILLIN /TAZOBACTAM 2.25 G in IV D5W 50 ML IV SCH ×3 (04:55→21:22)
[2021-12-10] MEDS: METOCLOPRAMIDE HCL 10 MG/2 ML VIAL IV SCH ×3 (04:55→21:22)
[2021-12-10 04:59] LABS: D-DIMER 21.99 mg/L(FEU (0.17-0.50)
[2021-12-10 05:02] LABS: BAND % (MANUAL) 0 % (0.0-5.0); LYMPHOCYTES % (MANUAL) 70 % (16-48)
[2021-12-10 05:03] LABS: EOSINOPHILS % (MANUAL) 2 % (0-4); MONOCYTES % (MANUAL) 24 % (0-11.0); NEUTROPHILS % (MANUAL) 4 (42-76)
[2021-12-10 05:14] LABS: UREA NITROGEN, BLOOD > 150 mg/dL (7-18)
[2021-12-10 05:15] LABS: ALBUMIN 0.8 g/dL (3.4-5.0)
[2021-12-10] MEDS: BLOOD SUGAR DIAGNOSTIC 1 EACH STRIP IN SCH ×3 (06:35→17:20)
--- NOTE | 2021-12-10 07:30 | NUR ---
RN OPENING NOTES Pt resting in bed a/o x 3-4. ON 2L VIA NC SATING AT 98%. TELE READS ST AT 108. PT IS NPO, WITH TPN RUNNING AT 60ML/HR. IV ACCESS NOTED AT NABEEL MIDLINE WITH JUDITH RUNNING AT 0.5 [address] EAST AGREED TO NOT DO SURGERY TODAY. ALL SAFETY MEASURES IN PLACE, FALL PRECAUTIONS IN PLACE. WILL CONT. TO MONITOR THROUGHOUT SHIFT.
[2021-12-10] MEDS: HYDROCORTISONE SOD SUCCINATE 100 MG/2 ML VIAL IV SCH ×3 (08:20→21:22)
[2021-12-10] MEDS: IV NS 0.9% 1,000 ML IV PRN ×2 (08:22→18:30)
[2021-12-10] MEDS ORDERED: VANCOMYCIN 500 MG in IV D5W 100ml IV SCH (11:00)
[2021-12-10] MEDS: INSULIN REGULAR, HUMAN 100 UNIT/ML 3 ML VIAL SQ PRN ×2 (11:17→17:21)
[2021-12-10] MEDS ORDERED: TPN BAG #5 IV PRN ×4 (12:00)
[2021-12-10] MEDS: TBO-FILGRASTIM 300 MCG/0.5 ML SYRINGE SQ SCH (14:02)
[2021-12-10] MEDS: MORPHINE SULFATE INJ 2 MG/ML DISP.SYRIN IV PRN (18:12)
--- NOTE | 2021-12-10 19:31 | NUR ---
MASTER AUTOMOTIVE TECHNICIAN. INITIAL ASSESSMENT. RECEIVED THE PT REST IN BED.PT IS SLEEPING . HOB ELEVATED. OXYGEN 2 L VIA NASAL CANNULA. SAT 97%CONCRETE PRECAST MOULDER SHOWING NSR. IV RT UPPER CHEST CATHIE CATH,LT UPPER ARM MID LINE. IVF NS 75 ML/H, TPN 80 ML/H, JUDITH 0.6MCG/KG/MIN, FC PATENT, LT NARE NGT LOW INTERMITTENT SUCTION. LT SIDE COLOSTOMY BAG INTACT,CVP INTACT. WILL CONTINUE TO MONITOR VITALS.
[2021-12-11] VITALS (62 sets, daily range): BP systolic 86–138; BP diastolic 56–93
[2021-12-11] MEDS: BLOOD SUGAR DIAGNOSTIC 1 EACH STRIP IN SCH ×5 (00:25→23:42)
[2021-12-11] MEDS ORDERED: TPN BAG #6 IV PRN ×3 (00:30)
--- NOTE | 2021-12-11 04:24 | NUR ---
PIANO REFINISHER, AM CARE GIVEN. REMAINING SAME OXYGEN TOLERATED WELL. SAT 98%. NO ACUTE DISTRESS NOTED. TRUCK REPAIR SUPERVISOR SHOWING NSR. IV LT UPPER ARM MID LINE. IVF NS 100ML/H, TPN 80 ML/H, JUDITH 0.3MCG/KG/MIN,FC PATENT. NGT LOW INTERMITTENT SUCTION. HOB ELEVATED. TURN AND REPOSITION Q2H. WILL CONTINUE TO MONITOR VITALS.
[2021-12-11 04:34] LABS: BASOPHILS % (AUTO) 0.1 % (0.0-2.0); EOSINOPHILS % (AUTO) 0.2 % (0.0-6.0); HEMATOCRIT 28 % (33-45); HEMOGLOBIN 9.4 g/dL (11.5-14.8); LYMPHOCYTES # (AUTO) 0.5 K/uL (0.8-4.8); LYMPHOCYTES % (AUTO) 31.6 % (20.0-44.0); MEAN CORPUSCULAR HGB CONC 33 g/dl (31.0-36.0); MEAN CORPUSCULAR VOLUME 88 fL (82-100); MONOCYTES % (AUTO) 1.5 % (2.0-12.0); NEUTROPHILS % (AUTO) 66.6 % (43.0-81.0); RED BLOOD CELL COUNT(AUTO) 3.18 MIL/uL (4.0-5.2)
[2021-12-11 04:57] LABS: ALANINE AMINOTRANSFERASE 95 U/L (12-78); ALKALINE PHOSPHATASE 40 U/L (46-116); ASPARTATE AMINOTRANSFERASE 62 U/L (15-37); BILIRUBIN,TOTAL 0.8 mg/dL (0.2-1.0); CALCIUM, SERUM 8.5 mg/dL (8.5-10.1); CARBON DIOXIDE 22 mmol/L (21-32); CHLORIDE 95 mmol/L (98-107); CREATININE 5.6 mg/dL (0.6-1.3); GLUCOSE 191 mg/dL (74-106); MAGNESIUM 1.7 mg/dL (1.8-2.4); PHOSPHORUS 4.2 mg/dL (2.5-4.9); POTASSIUM 3.5 mmol/L (3.5-5.1); SODIUM SERUM 134 mmol/L (136-145); TOTAL PROTEIN, SERUM 4.8 g/dL (6.4-8.2)
[2021-12-11 05:13] LABS: PLATELET COUNT (AUTO) 23 K/uL (150-450); WHITE BLOOD COUNT (AUTO) 1.4 K/uL (4.3-11.0)
[2021-12-11 05:14] LABS: UREA NITROGEN, BLOOD > 150 mg/dL (7-18)
[2021-12-11 05:15] LABS: ALBUMIN 0.8 g/dL (3.4-5.0)
[2021-12-11] MEDS: HYDROCORTISONE SOD SUCCINATE 100 MG/2 ML VIAL IV SCH ×3 (05:57→20:52)
[2021-12-11] MEDS: PIPERACILLIN /TAZOBACTAM 2.25 G in IV D5W 50 ML IV SCH ×3 (05:57→20:53)
[2021-12-11] MEDS: METOCLOPRAMIDE HCL 10 MG/2 ML VIAL IV SCH ×3 (05:57→20:41)
[2021-12-11] MEDS: IV NS 0.9% 1,000 ML IV PRN ×2 (05:59→17:48)
[2021-12-11] MEDS: INSULIN REGULAR, HUMAN 100 UNIT/ML 3 ML VIAL SQ PRN ×4 (06:00→23:44)
--- NOTE | 2021-12-11 07:45 | NUR ---
ICU/RN PT IS RESTING ,ON 2L N/C SAT O2-96%, AFEBRILE. NO PAIN REPORTED AT THIS TIME. AWAKE,ALERT.ON NEOSYNEPHRINE DRIP.NPO NG TUBE CONNECTED TO LOW INTERMEDIATE SUCTION WITH DARK BLOODY GASTRIC FLUIDS OUTPUT. HAS LEFT CHEST PORT-A CATH.ON TPN.IV FLUIDS . COLOSTOMY BAG WITH NO STOOL OUTPUT.F/C IN PLACE WITH NO URINE OUTPUT.REDNESS ON LOWER BACK NOTED. ORAL CARE DONE.REPOSITION FOR COMFORT.LABS REVIEW. NOTIFIED.NEW ORDERS RECEIVED.
[2021-12-11] MEDS: PHENYLEPHRINE 100 MG in IV NS 0.9% 240 ML IV PRN (08:22)
[2021-12-11] MEDS ORDERED: Magnesium 1GM/D5W 100ML PREMIX 100 ML IV SCH (08:30)
[2021-12-11 11:06] LABS: BAND % (MANUAL) 10 % (0.0-5.0); EOSINOPHILS % (MANUAL) 1 % (0-4); LYMPHOCYTES % (MANUAL) 26 % (16-48); MONOCYTES % (MANUAL) 18 % (0-11.0); NEUTROPHILS % (MANUAL) 45 (42-76)
[2021-12-11] MEDS: TBO-FILGRASTIM 300 MCG/0.5 ML SYRINGE SQ SCH (14:31)
--- NOTE | 2021-12-11 20:00 | NUR ---
Received patient A/OX4.Afebrile,SR.Normotensive.With O22LNC saturation 96%-97%.Denies any discomfort.NGT to LIS draining dark blood output.Colostomy active.FC to gravity.Patient with TPN and IV NS infusing.Turned and repositioned.Safety measures implemented.Call light at bedside.
[2021-12-12] VITALS (60 sets, daily range): BP systolic 56–141; BP diastolic 36–93
[2021-12-12] MEDS: IV NS 0.9% 1,000 ML IV PRN (03:32)
[2021-12-12] MEDS: METOCLOPRAMIDE HCL 10 MG/2 ML VIAL IV SCH ×3 (04:55→20:34)
[2021-12-12] MEDS: PIPERACILLIN /TAZOBACTAM 2.25 G in IV D5W 50 ML IV SCH ×3 (04:56→20:34)
[2021-12-12] MEDS: HYDROCORTISONE SOD SUCCINATE 100 MG/2 ML VIAL IV SCH ×3 (04:56→20:34)
[2021-12-12 05:07] LABS: BASOPHILS % (AUTO) 0.1 % (0.0-2.0); HEMATOCRIT 27 % (33-45); HEMOGLOBIN 9.1 g/dL (11.5-14.8); LYMPHOCYTES # (AUTO) 0.6 K/uL (0.8-4.8); LYMPHOCYTES % (AUTO) 12.2 % (20.0-44.0); MEAN CORPUSCULAR HGB CONC 33 g/dl (31.0-36.0); MEAN CORPUSCULAR VOLUME 88 fL (82-100); MONOCYTES % (AUTO) 0.5 % (2.0-12.0); NEUTROPHILS # (AUTO) 4.2 K/uL (1.8-8.9); NEUTROPHILS % (AUTO) 87.2 % (43.0-81.0); RED BLOOD CELL COUNT(AUTO) 3.08 MIL/uL (4.0-5.2); WHITE BLOOD COUNT (AUTO) 4.8 K/uL (4.3-11.0)
[2021-12-12 05:09] LABS: CALCIUM, SERUM 8.7 mg/dL (8.5-10.1); CREATININE 5.8 mg/dL (0.6-1.3); MAGNESIUM 1.9 mg/dL (1.8-2.4); POTASSIUM 3.3 mmol/L (3.5-5.1)
[2021-12-12 05:11] LABS: PLATELET COUNT (AUTO) 23 K/uL (150-450)
[2021-12-12 05:45] LABS: BAND % (MANUAL) 2 % (0.0-5.0); BASOPHILS % (MANUAL) 0 % (0.0-2.0); EOSINOPHILS % (MANUAL) 0 % (0-4); LYMPHOCYTES % (MANUAL) 9 % (16-48); MONOCYTES % (MANUAL) 4 % (0-11.0); NEUTROPHILS % (MANUAL) 85 (42-76)
[2021-12-12] MEDS: BLOOD SUGAR DIAGNOSTIC 1 EACH STRIP IN SCH ×4 (06:03→23:24)
[2021-12-12] MEDS: INSULIN REGULAR, HUMAN 100 UNIT/ML 3 ML VIAL SQ PRN ×4 (06:06→23:25)
--- NOTE | 2021-12-12 06:40 | NUR ---
Patient resting in no acute distress.VS remains stable.SR.AM care done.NGT drained 700 ml coffee ground.Colostomy drained 600 coffee ground colored.FC with 300 ml output during the night.Oral hygiene done.Turned and repositioned q 2 hrs.Denies pain or any discomfort.Kept warm and comfortable.Call light at bedside.
--- NOTE | 2021-12-12 07:40 | NUR ---
ICU/RN PT IS RESTING. ON 2L N/C SAT O2-96%.V/S STABLE.OFF PRESSORS.AFEBRILE.NO PAIN REPORTED AT THIS TIME.PT IS NPO.NG TUBE CONNECTED TO LOW INTERMEDIATE SUCTION, WITH DARK BROWN GASTRIC RESIDUAL. COLOSTOMY BAG DRAINING BROWN LIQUID STOOL. PT IS ON TPN.CVP-6.LEFT CHEST PORT-A-CATH.F/C IN PLACE WITH MINIMAL AMOUNT OF URINE .LABS REVIEW .MD NOTIFIED.REPOSITION FOR COMFORT.
[2021-12-12] MEDS: PHENYLEPHRINE 100 MG in IV NS 0.9% 240 ML IV PRN (14:50)
--- NOTE | 2021-12-12 15:00 | NUR ---
ICU/RN RIGHT FEMORAL HD CATH PLACED ORDERED.
[2021-12-12] MEDS ORDERED: POTASSIUM CL. PREMIX PERIPHER. 50 ML IV SCH (17:30)
--- NOTE | 2021-12-12 17:40 | NUR ---
ICU/RN HD IS OVER 1 L OUT.DURING HD BP DECREASED NEOSYNEPHRINE DRIP STARTED.HR INCREASED UP TO 140BPM.
[2021-12-12] MEDS ORDERED: Sodium Phosphate 15 MMOL in IV NS 0.9% 245 ML IV SCH (18:00)
--- NOTE | 2021-12-12 18:20 | NUR ---
ICU/RN PM CARE PROVIDED.COLOSTOMY BAG CHANGED.PT HAS A LOT OF OUTPUT.DR FERNANDO NOTIFIED.DUE MEDS ARE GIVEN ORDERED.
--- NOTE | 2021-12-12 20:00 | NUR ---
Received patient drowsy.VSS.Respiration even and unlabored with O2 2LNC saturation wnl. SR with Isaac Synephrine gtt infusing for BP support.NGT to LIS draining coffee ground.Remain NPO status.TPN and IVF infusing well.FC to gravity.Colostomy active moderate coffee ground liquid output.Patient turned and repositioned to comfort.Scheduled for surgery in AM.Consent Signed.Pre-op check list initiated.
--- NOTE | 2021-12-12 20:55 | NUR ---
Platelet 1 unit transfused without adverse reaction.VSS.Denies any discomfort.
--- NOTE | 2021-12-12 21:30 | NUR ---
Verified with PATRICK from blood Bank regarding patient blood availability.There is 2 units PRBC, and 2 Units FFP available.Per Patrick 2 Units Platelets will be available at 9 AM tomorrow.
[2021-12-13] VITALS (38 sets, daily range): BP systolic 90–178; BP diastolic 54–108
[2021-12-13] MEDS: IV NS 0.9% 1,000 ML IV PRN ×2 (00:04→13:00)
[2021-12-13] MEDS: MORPHINE SULFATE INJ 2 MG/ML DISP.SYRIN IV PRN ×2 (03:57→13:10)
[2021-12-13 04:24] LABS: BASOPHILS % (AUTO) 0.1 % (0.0-2.0); HEMATOCRIT 26 % (33-45); HEMOGLOBIN 8.5 g/dL (11.5-14.8); LYMPHOCYTES # (AUTO) 0.7 K/uL (0.8-4.8); LYMPHOCYTES % (AUTO) 5.7 % (20.0-44.0); MEAN CORPUSCULAR HGB CONC 33 g/dl (31.0-36.0); MEAN CORPUSCULAR VOLUME 89 fL (82-100); MONOCYTES # (AUTO) 0.5 K/uL (0.1-1.30); MONOCYTES % (AUTO) 3.7 % (2.0-12.0); NEUTROPHILS # (AUTO) 11.6 K/uL (1.8-8.9); NEUTROPHILS % (AUTO) 90.5 % (43.0-81.0); RED BLOOD CELL COUNT(AUTO) 2.89 MIL/uL (4.0-5.2); WHITE BLOOD COUNT (AUTO) 12.8 K/uL (4.3-11.0)
[2021-12-13 04:33] LABS: PLATELET COUNT (AUTO) 24 K/uL (150-450)
[2021-12-13 04:48] LABS: CREATININE 3.7 mg/dL (0.6-1.3); MAGNESIUM 1.6 mg/dL (1.8-2.4); PHOSPHORUS 4.6 mg/dL (2.5-4.9); POTASSIUM 2.9 mmol/L (3.5-5.1)
[2021-12-13] MEDS: HYDROCORTISONE SOD SUCCINATE 100 MG/2 ML VIAL IV SCH ×2 (05:01→12:25)
[2021-12-13] MEDS: PIPERACILLIN /TAZOBACTAM 2.25 G in IV D5W 50 ML IV SCH ×2 (05:01→12:28)
[2021-12-13] MEDS: METOCLOPRAMIDE HCL 10 MG/2 ML VIAL IV SCH ×2 (05:01→12:25)
[2021-12-13] MEDS: IV NS 0.9% 250 ML IV PRN (05:09)
[2021-12-13] MEDS: BLOOD SUGAR DIAGNOSTIC 1 EACH STRIP IN SCH ×2 (05:23→11:54)
[2021-12-13] MEDS: INSULIN REGULAR, HUMAN 100 UNIT/ML 3 ML VIAL SQ PRN ×2 (05:25→11:50)
[2021-12-13 06:06] LABS: BAND % (MANUAL) 3 % (0.0-5.0); BASOPHILS % (MANUAL) 0 % (0.0-2.0); EOSINOPHILS % (MANUAL) 0 % (0-4); LYMPHOCYTES % (MANUAL) 6 % (16-48); MONOCYTES % (MANUAL) 5 % (0-11.0); NEUTROPHILS % (MANUAL) 86 (42-76)
--- NOTE | 2021-12-13 06:26 | NUR ---
Patient resting.VSS.SR off Isaac Synephrine gtt.All due medications administered.Remains NPO with iv's infusing well.AM care donee.Turned and repositioned Q 2hrs.was medicated for abdominal and back pain .Verbalized relief.Good colostomy output.Awaiting surgery today at 0930 will endorse to day shift for GLADIS.
--- NOTE | 2021-12-13 06:55 | NUR ---
,Anesthesiologist here seen patient.According to to keep TPN going and remove remaining IV's and CVP and notify him if Isaac Synephrine is restarted before surgery.
[2021-12-13] MEDS: POTASSIUM CL. PREMIX PERIPHER. 50 ML IV SCH ×2 (08:21→09:24)
--- NOTE | 2021-12-13 09:03 | NUR ---
Blood Products: 1 unit of Plateletts arrived. still awaiting 1 more unit of plateletts to be delivered @ this time
--- NOTE | 2021-12-13 09:37 | NUR ---
Surgery Cancelled by Dr Alvarez Orders to Tx to [facility] Admit to Tele @ receiving facility - Dr Josue Pierce
[2021-12-13] MEDS: ONDANSETRON HCL/PF 4 MG/2 ML VIAL IVP PRN (13:08)
--- NOTE | 2021-12-13 13:20 | NUR ---
PER CASE MANAGEMENT -NO AVAILABLE ACLS TRANSPORT. DR. CRUZITO [facility] TRANSFER TO [facility].
--- NOTE | 2021-12-13 13:41 | NUR ---
Transfer To [facility] Receiving Unit RM [id number]. Will call to give transfer report
--- NOTE | 2021-12-13 15:12 | NUR ---
Picked up by BLS transfer ambulance. Pt AAox4; VSS upon transfer Transfer packet given Transport crew with receiving facility info provided. Port a cath, Midline, and Trialysis Cath in place. Receiving RN aware. NGT discontinued upon transfer as ordered by Dr Alvarez
[2021-12-13] MEDS ORDERED: Magnesium 1GM/D5W 100ML PREMIX 100 ML IV SCH (17:00)
[2021-12-13] MEDS ORDERED: POTASSIUM CL. PREMIX PERIPHER. 50 ML IV SCH (18:00)
[2021-12-13] MEDS ORDERED: VANCOMYCIN 1 GM in IV D5W 250 ML IV PRN (19:00)
== END 2021-12-13 15:07 | disposition short-term general hospital (02) | DRG 871 ==
LOC: ER 13:40 → ICU 17:47
PROVIDERS: ADMIT Internal Medicine; ATTEND Internal Medicine
PROC: 05HC33Z Insertion of Infusion Device into Left Basilic Vein, Percutaneous Approach (ICD-10-PCS; 2021-12-05)
PROC: 30233R1 Transfusion of Nonautologous Platelets into Peripheral Vein, Percutaneous Approach (ICD-10-PCS; 2021-12-08)
PROC: 30233N1 Transfusion of Nonautologous Red Blood Cells into Peripheral Vein, Percutaneous Approach (ICD-10-PCS; principal; 2021-12-09)
PROC: 5A1D70Z Performance of Urinary Filtration, Intermittent, Less than 6 Hours Per Day (ICD-10-PCS; 2021-12-12)
PROC: 06HY33Z Insertion of Infusion Device into Lower Vein, Percutaneous Approach (ICD-10-PCS; 2021-12-12)
DX: A41.59 Other Gram-negative sepsis (principal); E43 Unspecified severe protein-calorie malnutrition; G93.41 Metabolic encephalopathy; I21.A1 Myocardial infarction type 2; N17.0 Acute kidney failure with tubular necrosis; R65.21 Severe sepsis with septic shock; K72.00 Acute and subacute hepatic failure without coma; N18.6 End stage renal disease; I12.0 Hypertensive chronic kidney disease with stage 5 chronic kidney disease or end stage renal disease; E87.2 Acidosis; N13.30 Unspecified hydronephrosis; K56.609 Unspecified intestinal obstruction, unspecified as to partial versus complete obstruction; C19 Malignant neoplasm of rectosigmoid junction; C78.7 Secondary malignant neoplasm of liver and intrahepatic bile duct; D68.9 Coagulation defect, unspecified; D61.818 Other pancytopenia; E87.0 Hyperosmolality and hypernatremia; Z88.6 Allergy status to analgesic agent; Z88.8 Allergy status to other drugs, medicaments and biological substances; Z20.822 Contact with and (suspected) exposure to COVID-19; Z79.899 Other long term (current) drug therapy; Z53.9 Procedure and treatment not carried out, unspecified reason; Z85.048 Personal history of other malignant neoplasm of rectum, rectosigmoid junction, and anus; Z92.21 Personal history of antineoplastic chemotherapy; Z99.2 Dependence on renal dialysis; K80.20 Calculus of gallbladder without cholecystitis without obstruction; K82.8 Other specified diseases of gallbladder; Z98.890 Other specified postprocedural states; D70.1 Agranulocytosis secondary to cancer chemotherapy; E86.0 Dehydration; E88.09 Other disorders of plasma-protein metabolism, not elsewhere classified; G89.29 Other chronic pain; R09.02 Hypoxemia
CPT/HCPCS: 36410; 36415; 36600; 71045-TC; 74018; 76770-TC; 80048-TC; 80053-TC; 80061-TC; 80076-TC; 80202-TC; 81001; 82040-TC; 82533; 82607-TC; 82728-TC; 82784; 82962-TC; 83540-TC; 83605-TC; 83735-TC; 84100-TC; 84134-TC; 84155; 84165; 84478-TC; 84484-TC; 85025-TC; 85027-TC; 85396; 85610-TC; 85730-TC; 86140-TC; 86225; 86235; 86334; 86431-TC; 86706; 86803; 86850-TC; 87040-TC; 87081-TC; 87086-TC; 87186-TC; 87340; 90935-TC; 93307-TC; 94762-TC; 94799-TC; A9563; C9803; G0378; J0692; J1170; J1442; J1720; J1815; J2270; J2370; J2405; J2543; J2765; J3010; J3370; J3475; J3480; J3490; J7030; J7042; J7050; J7060; P9016; P9034